=== PATIENT | female | born 1995 | race African-American/Black ===

== ENCOUNTER 2017-06-06 11:24 | Emergency (ER) | payer MEDICAID ==
[~2017-06-06] VITALS: Ht 172.7 cm; Wt 83.0 kg
[2017-06-06 12:00] VITALS: BP 125/78
[2017-06-06] MEDS ORDERED: IBUPROFEN600 MG ORAL (12:01)
[2017-06-06] MEDS ORDERED: PREDNISONE20 MG ORAL (12:01)
[2017-06-06] MEDS ORDERED: CLINDAMYCIN HC300 MG ORAL (12:01)
--- NOTE | 2017-06-06 14:13 | Emergency Room Report ---
History of Present Illness General Chief Complaint: Sore Throat Source: Patient Present Illness HPI Patient present with complaints of sore throat Ongoing for the past one day Questionable low-grade fever Denies any difficulty swallowing or breathing Denies any headache or visual changes and eyes any rash pain is 5 out of 10 Denies any vomiting or diarrhea denies any change in her voice Allergies: Coded Allergies: PENICILLINS (Verified Allergy, Severe, Hives, 06/06/17) Patient History Past Medical History: see triage record Pertinent Family History: none Last Menstrual Period: last month Now: No Reviewed Nursing Documentation: PMH: Agreed, PSxH: Agreed Nursing Documentation-PMH Past Medical History: No History, Except For Hx Asthma: Yes Review of Systems All Other Systems: negative except mentioned in HPI Physical Exam Vital Signs Date Time Temp Pulse Resp B/P (MAP) Pulse Ox O2 Delivery O2 Flow Rate FiO2 06/06/17 11:36 98.8 94 18 125/78 98 Room Air 98.8 Sp02 EP Interpretation: reviewed, normal General Appearance: well appearing, no apparent distress Head: normocephalic, atraumatic Eyes: bilateral eye PERRL, bilateral eye EOMI ENT: no angioedema, uvula midline, pharyngeal erythema Neck: full range of motion, supple Respiratory: lungs clear Cardiovascular #1: regular rate, rhythm Musculoskeletal: normal inspection Neurologic: alert, oriented x3, responsive Skin: normal color, no rash, warm/dry Lymphatic: no adenopathy Medical Decision Making Diagnostic Impression: Primary Impression: pharyngitis ER Course Patient has findings in line with pharyngitis No signs of any peritonsillar abscess Patient was provided with medication here and placed on oral antibiotics she is allergic to penicillin therefore placed on clindamycin Last Vital Signs Date Time Temp Pulse Resp B/P (MAP) Pulse Ox O2 Delivery O2 Flow Rate FiO2 06/06/17 12:10 98.8 06/06/17 11:36 94 18 125/78 98 Room Air Status: improved Disposition: HOME, SELF-CARE Condition: Improved Scripts Clindamycin Hcl (CLINDAMYCIN HCL) 300 Mg Capsule 300 MG ORAL THREE TIMES A DAY, #21 CAP Prov: Miles Sanz DO 06/06/17 Prednisone* (PREDNISONE*) 20 Mg Tablet 20 MG ORAL BID, #8 TAB Prov: Miles Sanz DO 06/06/17 Ibuprofen* (MOTRIN*) 600 Mg Tablet 600 MG ORAL Q8H Y for For Pain, #20 TAB 0 Refills Prov: Miles Sanz DO 06/06/17 Patient Instructions: Pharyngitis, [id number] Additional Instructions: Patient is provided with the discharge instructions notified to follow up with primary doctor in the next 2-3 days otherwise return to the er with any worsening symptoms. Please note that this report is being documented using Nuji technology. This can lead to erroneous entry secondary to incorrect interpretation by the dictating instrument. Miles Sanz DO Jun 06, 2017 14:13
== END 2017-06-06 12:45 | disposition home or self-care (01) ==
LOC: EMR 12:40
DX: J02.9 Acute pharyngitis, unspecified (principal); J45.909 Unspecified asthma, uncomplicated; Z88.0 Allergy status to penicillin
CPT/HCPCS: 99284; J7512

== ENCOUNTER 2017-06-19 05:41 | Emergency (ER) | payer MEDICAID ==
[~2017-06-19] VITALS: Ht 172.7 cm; Wt 84.8 kg
[~2017-06-19 05:41] MED LIST: CLINDAMYCIN HC300 MG ORAL; IBUPROFEN600 MG ORAL; PREDNISONE20 MG ORAL
[2017-06-19 06:05] VITALS: BP 111/75
[2017-06-19] MEDS ORDERED: DEBROX15 M1 RIGHT EAR (06:43)
--- NOTE | 2017-06-19 06:44 | Emergency Room Report ---
History of Present Illness General Chief Complaint: Sore Throat Source: Patient Present Illness HPI Is a 21-year-old female with no past medical history except for asthma. She presents with sore throat and ear pain. Onset for last 2 days. She saw her doctor last week and given prescription for antibiotics and steroid. She has not taken them. Worse with talking. Pain is 8 out of 10. Also decreased hearing. No nausea no vomiting. Does have congestion. Also with loss of voice. Allergies: Coded Allergies: PENICILLINS (Verified Allergy, Severe, Hives, 06/06/17) Uncoded Allergies: PENICILLINE (Allergy, Unknown, 06/19/17) Patient History Past Medical History: see triage record, old chart reviewed, asthma Past Surgical History: none Pertinent Family History: none Social History: Denies: smoking Last Menstrual Period: one week ago Now: No Immunizations: other Reviewed Nursing Documentation: PMH: Agreed; PSxH: Agreed Nursing Documentation-PMH Hx Asthma: Yes Review of Systems Eye: Denies: eye pain, blurred vision ENT: Reports: ear pain, nose congestion, throat pain; Denies: throat swelling Respiratory: Denies: cough, shortness of breath Cardiovascular: Denies: chest pain, palpitations Gastrointestinal: Denies: abdominal pain, diarrhea, nausea, vomiting Musculoskeletal: Denies: back pain, joint pain Skin: Denies: rash Neurological: Denies: headache, numbness Endocrine: Denies: increased thirst, increased urine Hematologic/Lymphatic: Denies: easy bruising All Other Systems: negative except mentioned in HPI Physical Exam Vital Signs Date Time Temp Pulse Resp B/P (MAP) Pulse Ox O2 Delivery O2 Flow Rate FiO2 06/19/17 05:50 100 14 111/75 98 Room Air 06/19/17 06:05 98.0 98.0 vitals normal Sp02 EP Interpretation: reviewed, normal General Appearance: well appearing, no apparent distress, alert Head: normocephalic, atraumatic Eyes: bilateral eye PERRL, bilateral eye EOMI ENT: hearing grossly normal, pharyngeal erythema, other - bilateral canal obstructed with cerumen Neck: full range of motion, supple, no meningismus Respiratory: chest non-tender, lungs clear, normal breath sounds Cardiovascular #1: regular rate, rhythm, no murmur Gastrointestinal: normal bowel sounds, non tender, no mass, no organomegaly, no bruit, non-distended Musculoskeletal: back normal, gait/station normal, normal range of motion Psychiatric: mood/affect normal Skin: warm/dry Procedures Additional Procedure Procedure Narrative Procedure: Cerumen disimpaction Indication: Cerumen impaction Description: I irrigated the left ear and using a current able to remove the impacted cerumen. I had difficulty with the right ear. Is was very thick and hard. Appear that was able to get half of it out. Patient became very dizzy and did not want to proceed anymore. There was no complication or bleeding. Medical Decision Making Diagnostic Impression: Primary Impression: Sore throat Additional Impression: Impacted cerumen of both ears ER Course Patient with a pharyngitis/laryngitis. This is a viral infection. No evidence of bacterial infection. She finished a course of antibiotics and not getting better. No evidence of peritonsillar abscess or neoplastic process. No evidence of retropharyngeal abscess or Lucian angina. Last Vital Signs Date Time Temp Pulse Resp B/P (MAP) Pulse Ox O2 Delivery O2 Flow Rate FiO2 06/19/17 06:05 98.0 100 14 111/75 98 Room Air 98.0 Status: improved Disposition: HOME, SELF-CARE Condition: Stable Scripts Carbamide Peroxide (DEBROX) 15 Ml Drops 5 DROP RIGHT EAR TWICE A DAY for 4 Days, #15 ML 0 Refills Prov: PITA ARRINGTON M.D. 06/19/17 Patient Instructions: Laryngitis Additional Instructions: Follow-up with your doctor in 2-3 days. Return if symptom worsen. Take your steroids. PITA ARRINGTON M.D. Jun 19, 2017 06:44
[2017-06-19 08:04] VITALS: BP_SYST 111; BP_SYST 118; BP_DIAS 68; BP_DIAS 75
== END 2017-06-19 08:04 | disposition home or self-care (01) ==
LOC: EMR 06:30
DX: J02.9 Acute pharyngitis, unspecified (principal); H61.23 Impacted cerumen, bilateral; Z88.0 Allergy status to penicillin
CPT/HCPCS: 69210; 99283

== ENCOUNTER 2017-07-05 06:01 | Emergency (ER) | payer MEDICAID ==
[~2017-07-05] VITALS: Ht 172.7 cm; Wt 84.8 kg
[~2017-07-05 06:01] MED LIST changes: +DEBROX15 M1 RIGHT EAR
[2017-07-05] MEDS ORDERED: ALBUTEROL SULF8.5 GM INH (06:13)
[2017-07-05 06:24] VITALS: BP 119/82
[2017-07-05] MEDS ORDERED: FLONASE ALLERG9.9 ML NS (06:39)
[2017-07-05] MEDS ORDERED: SUDAFED 12 HOU120 M1 PO (06:39)
--- NOTE | 2017-07-05 06:44 | Emergency Room Report ---
History of Present Illness General Chief Complaint: Sore Throat Source: Patient Present Illness HPI 20-year-old female presents with sore throat since waking up this morning No associated fever, chills, cough Is associated with sinus congestion and frontal sinus headache This is third visit in 1 month for similar complaints - patient already completed a course of clindamycin, and had eardrops for impacted cerumen Denies difficulty swallowing secretions, eating Was given Rx for Levaquin by another physician in hospital but hasnt filled it Allergies: Coded Allergies: PENICILLINS (Verified Allergy, Severe, Hives, 06/06/17) Patient History Past Medical History: asthma Past Surgical History: none Pertinent Family History: none Social History: Denies: smoking, alcohol use, drug use Last Menstrual Period: 06/15/17 Now: No Immunizations: UTD Reviewed Nursing Documentation: PMH: Agreed; PSxH: Agreed Nursing Documentation-PMH Past Medical History: No History, Except For Hx Asthma: Yes Review of Systems All Other Systems: negative except mentioned in HPI Physical Exam Vital Signs Date Time Temp Pulse Resp B/P (MAP) Pulse Ox O2 Delivery O2 Flow Rate FiO2 07/05/17 06:07 98.4 87 16 119/82 97 Room Air 98.4 Sp02 EP Interpretation: reviewed, normal General Appearance: normal inspection, well appearing, no apparent distress, alert, GCS 15, non-toxic Head: normocephalic, atraumatic Eyes: bilateral eye PERRL, bilateral eye EOMI ENT: normal ENT inspection, hearing grossly normal, no angioedema, normal voice , TMs + canals normal, uvula midline, moist mucus membranes, nasal congestion, pharyngeal erythema Neck: normal inspection, full range of motion, supple, thyroid normal, no meningismus, no bony tend Respiratory: normal inspection, lungs clear, normal breath sounds, no rhonchi, no respiratory distress, no retraction, no accessory muscle use, no wheezing, speaking full sentences Cardiovascular #1: regular rate, rhythm, no edema, no JVD, normal capillary refill Gastrointestinal: normal inspection, normal bowel sounds, non tender, soft, no mass, no peritonitis, non-distended, no guarding, no hernia, no pulsatile mass Genitourinary: no CVA tenderness Musculoskeletal: normal inspection, back normal, normal range of motion, no calf tenderness, pelvis stable, Estevan's Sign negative Neurologic: normal inspection, alert, oriented x3, responsive, meterman III-XII nml as tested, motor strength/tone normal, cerebellar normal, normal gait, speech normal Psychiatric: normal inspection, judgement/insight normal, mood/affect normal, no suicidal/homicidal ideation, no delusions Skin: normal inspection, normal color, no rash Lymphatic: normal inspection, no adenopathy Medical Decision Making Diagnostic Impression: Primary Impression: Sore throat Additional Impressions: Sinus congestion Sinusitis Qualified Codes: J01.10 - Acute frontal sinusitis, unspecified ER Course VSS, afebrile Sinus congestion, headache and erythematous oropharynx, likely post-nasal drip No sign of bacterial infection Advised complete Levaquin Rx given by other physician Sudafed, flonase for symptomatic relief PMD followup Last Vital Signs Date Time Temp Pulse Resp B/P (MAP) Pulse Ox O2 Delivery O2 Flow Rate FiO2 07/05/17 06:24 98.4 87 16 119/82 97 Room Air 98.4 Status: improved Disposition: HOME, SELF-CARE Condition: Improved Scripts Fluticasone Propionate (Flonase Allergy Relief) 9.9 Ml [place].susp 9.9 ML NS BID for nasal congestion for 7 Days, #1 UNIT Prov: ALLYN LANTIGUA M.D. 07/05/17 Pseudoephedrine Hcl (SUDAFED 12 HOUR) 120 Mg Tablet.er 120 MG PO DAILY for 5 Days, #10 TAB Prov: ALLYN LANTIGUA M.D. 07/05/17 Patient Instructions: Sinusitis, Adult, [id number] Additional Instructions: - Fill prescription for Levaquin from doctor - Use sudafed and flonasa nasal spray to treat sinus congestion ALLYN LANTIGUA M.D. Jul 05, 2017 06:44
[2017-07-05 06:45] VITALS: BP 119/82
== END 2017-07-05 06:45 | disposition home or self-care (01) ==
LOC: EMR 06:45
DX: J01.10 Acute frontal sinusitis, unspecified (principal); Z88.0 Allergy status to penicillin
CPT/HCPCS: 99284

== ENCOUNTER 2017-07-13 05:37 | Emergency (ER) | payer MEDICAID ==
[~2017-07-13] VITALS: Ht 172.7 cm; Wt 84.8 kg
[~2017-07-13 05:37] MED LIST changes: +ALBUTEROL SULF8.5 GM INH; +FLONASE ALLERG9.9 ML NS; +SUDAFED 12 HOU120 M1 PO
[2017-07-13 06:02] VITALS: BP 110/73
[2017-07-13] MEDS ORDERED: Fluconazole 100mg tab ORAL ONE (06:15)
--- NOTE | 2017-07-13 06:15 | Emergency Room Report ---
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 She presents with chief complaint of vaginal itching. She was treated for tonsillitis last week with antibiotics. She said every time she get antibiotics to get a yeast infection. Denies vaginal bleeding. Denies any discharge. Similar symptom in the past. Allergies: Coded Allergies: PENICILLINS (Verified Allergy, Severe, Hives, 06/06/17) Patient History Past Medical History: see triage record, old chart reviewed Past Surgical History: none Pertinent Family History: none Social History: Denies: smoking Last Menstrual Period: 06/17/17 Now: No Immunizations: other Reviewed Nursing Documentation: PMH: Agreed; PSxH: Agreed Nursing Documentation-PMH Past Medical History: No History, Except For Hx Asthma: Yes Hx Gastrointestinal Problems: Yes - Cholecystectomy Hx Neurological Problems: No - Right Ovarian cyst removed on 04/09/17 Review of Systems Eye: Denies: eye pain, blurred vision ENT: Denies: ear pain, nose congestion, throat swelling Respiratory: Denies: cough, shortness of breath Cardiovascular: Denies: chest pain, palpitations Gastrointestinal: Denies: abdominal pain, diarrhea, nausea, vomiting Musculoskeletal: Denies: back pain, joint pain Skin: Denies: rash Neurological: Denies: headache, numbness Endocrine: Denies: increased thirst, increased urine Hematologic/Lymphatic: Denies: easy bruising All Other Systems: negative except mentioned in HPI Physical Exam Vital Signs Date Time Temp Pulse Resp B/P (MAP) Pulse Ox O2 Delivery O2 Flow Rate FiO2 07/13/17 05:50 98.1 99 16 110/73 98 Room Air 98.1 vitals normal Sp02 EP Interpretation: reviewed, normal General Appearance: well appearing, no apparent distress, alert Head: normocephalic, atraumatic Eyes: bilateral eye PERRL, bilateral eye EOMI ENT: hearing grossly normal, normal pharynx Neck: full range of motion, supple, no meningismus Respiratory: chest non-tender, lungs clear, normal breath sounds Cardiovascular #1: regular rate, rhythm, no murmur Gastrointestinal: normal bowel sounds, non tender, no mass, no organomegaly, no bruit, non-distended Musculoskeletal: back normal, gait/station normal, normal range of motion Psychiatric: mood/affect normal Skin: warm/dry Medical Decision Making Diagnostic Impression: Primary Impression: Candidal vaginitis ER Course Patient presents with vaginitis most likely Gris. We'll give her a dose of Diflucan here. No other complaint. We'll discharge home. Last Vital Signs Date Time Temp Pulse Resp B/P (MAP) Pulse Ox O2 Delivery O2 Flow Rate FiO2 07/13/17 06:02 98.1 99 16 110/73 98 Room Air 98.1 Status: unchanged Disposition: HOME, SELF-CARE Condition: Stable Referrals: NOT CHOSEN IPA/MD,REFERRING (PCP) Additional Instructions: Follow-up your doctor in 7 days. Return if worse. PITA ARRINGTON M.D. Jul 13, 2017 06:15
[2017-07-13 06:23] VITALS: BP 0/0
== END 2017-07-13 06:23 | disposition home or self-care (01) ==
LOC: EMR 06:10
DX: B37.3 Candidiasis of vulva and vagina (principal); Z88.0 Allergy status to penicillin; Z90.49 Acquired absence of other specified parts of digestive tract
CPT/HCPCS: 99282

== ENCOUNTER 2017-08-11 08:54 | Emergency (ER) | payer MEDICAID ==
[~2017-08-11] VITALS: Ht 172.7 cm; Wt 81.6 kg
--- NOTE | 2017-08-11 09:15 | Emergency Room Report ---
History of Present Illness General Chief Complaint: General Complaint Source: Patient Present Illness HPI Patient presents with chest pressure. She states she had an asthma attack early this morning. She used her inhaler and has no wheezing at this time. She denies any fevers, chills, nausea, vomiting, diarrhea. Her last period was normal she doesn't believe she is . She feels pressure in her chest at this time and saw [facility] who found her heart rate was up. The last time she had pressure like this was when she had an anxiety attack. This was treated with benadryl. She does not smoke and is not taking control pills. She's not had a long immobilization. She denies calf pain or edema. No fevers, trauma, NVD, dysuria. 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 [employer] Reviewed Nursing Documentation: PMH: Agreed; PSxH: Agreed Nursing Documentation-PMH Past Medical History: No History, Except For Hx Asthma: Yes Hx Gastrointestinal Problems: Yes - Cholecystectomy Hx Neurological Problems: No - Right Ovarian cyst removed on 04/09/17 Review of Systems All Other Systems: negative except mentioned in HPI Physical Exam Vital Signs Date Time Temp Pulse Resp B/P (MAP) Pulse Ox O2 Delivery O2 Flow Rate FiO2 08/11/17 09:00 97.8 80 16 146/86 97 Room Air 97.9 Sp02 EP Interpretation: reviewed, normal General Appearance: well appearing, no apparent distress, GCS 15 Head: normocephalic, atraumatic Eyes: bilateral eye normal inspection, bilateral eye PERRL ENT: hearing grossly normal, normal voice, moist mucus membranes Neck: full range of motion, supple Respiratory: lungs clear, normal breath sounds, no respiratory distress, speaking full sentences, other - some R CWT Cardiovascular #1: normal peripheral pulses, regular rate, rhythm Cardiovascular #2: 2+ radial (L) Gastrointestinal: normal inspection Genitourinary: no CVA tenderness Musculoskeletal: no calf tenderness Neurologic: alert, oriented x3, normal gait, grossly normal Psychiatric: mood/affect normal Skin: no rash Medical Decision Making Diagnostic Impression: Primary Impression: Chest pain Qualified Codes: R07.9 - Chest pain, unspecified Additional Impression: Asthma Qualified Codes: J45.909 - Unspecified asthma, uncomplicated ER Course Patient presents with chest pressure after an asthma attack. Differential includes pulmonary embolus, asthma, costochondritis, cardiac cause, spontaneous pneumothorax amongst others. She claims she's not anxious at this time. Risk for pulmonary embolus is extremely low based on physical exam and history. Physical exam more c/w CWT. Patient be treated with Motrin. An EKG will be checked. Asthma now stable and she is not wheezing. EKG without injury. Improved with treatment. Doubt pneumo as improved with motrin. Patient stable for outpatient observation and treatment. EKG Diagnostic Results Rate: normal Rhythm: NSR ST Segments: no acute changes Rhythm Strip Diag. Results EP Interpretation: yes Rhythm: NSR, no PVC's, no ectopy Last Vital Signs Date Time Temp Pulse Resp B/P (MAP) Pulse Ox O2 Delivery O2 Flow Rate FiO2 08/11/17 10:17 98.7 66 15 138/71 99 Room Air 208.0 Status: improved Disposition: HOME, SELF-CARE Condition: Improved Scripts Ibuprofen* (MOTRIN*) 600 Mg Tablet 600 MG ORAL Q6H PRN for For Pain, #16 TAB Prov: Marvin Cristina M.D. 08/11/17 Marvin Cristina M.D. August 11, 2017 09:15
[2017-08-11 09:31] VITALS: BP 140/82
[2017-08-11] MEDS ORDERED: IBUPROFEN600 MG ORAL (10:06)
[2017-08-11 10:17] VITALS: BP 138/71
--- NOTE | 2017-08-13 22:32 | Cardiology Report ---
APPROVED REPORT EKG Measurement Heart [id number] Normal sinus rhythm with sinus arrhythmia Normal ECG
== END 2017-08-11 10:19 | disposition home or self-care (01) ==
LOC: EMR 09:28
DX: R07.89 Other chest pain (principal); J45.909 Unspecified asthma, uncomplicated; Z90.49 Acquired absence of other specified parts of digestive tract; Z88.0 Allergy status to penicillin
CPT/HCPCS: 93005; 99283

== ENCOUNTER 2017-09-11 07:11 | Emergency (ER) | payer MEDICAID ==
[~2017-09-11] VITALS: Ht 172.7 cm; Wt 83.5 kg
[2017-09-11 07:22] VITALS: BP 121/85
[2017-09-11] MEDS ORDERED: LORATADINE10 M2 PO (07:23)
--- NOTE | 2017-09-11 07:27 | Emergency Room Report ---
History of Present Illness General Chief Complaint: Asthma Source: Patient Present Illness HPI Patient is a 22-year-old female presented after increased cough and congestion. Patient prior history of asthma. She noted have increased use of her inhaler. Patient denies any fever. She states that she had previous and been taking Claritin. She reports recently being on steroids. 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 The patient was having increased nasal congestion as well as cough Allergies: Coded Allergies: PENICILLINS (Verified Allergy, Severe, Hives, 06/06/17) Patient History Past Medical History: see triage record Last Menstrual Period: 08/15/17 Now: No Reviewed Nursing Documentation: PMH: Agreed; PSxH: Agreed Nursing Documentation-PMH Hx Asthma: Yes Hx Gastrointestinal Problems: Yes - Cholecystectomy Hx Neurological Problems: No - Right Ovarian cyst removed on 04/09/17 Review of Systems All Other Systems: negative except mentioned in HPI Physical Exam Vital Signs Date Time Temp Pulse Resp B/P (MAP) Pulse Ox O2 Delivery O2 Flow Rate FiO2 09/11/17 07:14 98.8 82 19 121/85 96 Room Air 98.8 Sp02 EP Interpretation: reviewed, normal General Appearance: normal inspection, well appearing, no apparent distress, alert, GCS 15 Head: atraumatic ENT: normal ENT inspection, hearing grossly normal, normal voice Neck: normal inspection, full range of motion, supple, no bony tend Respiratory: normal inspection, no respiratory distress, no retraction, wheezing Cardiovascular #1: regular rate, rhythm, no edema Gastrointestinal: normal inspection, normal bowel sounds, non tender, soft, no guarding, no hernia Genitourinary: no CVA tenderness Musculoskeletal: normal inspection, back normal, normal range of motion Neurologic: normal inspection, alert, oriented x3, responsive, paraffin plant operator III-XII nml as tested, speech normal Psychiatric: normal inspection, judgement/insight normal, mood/affect normal Skin: normal inspection, normal color, no rash Medical Decision Making Diagnostic Impression: Primary Impression: Asthma attack Additional Impression: Urinary tract infection ER Course Patient presented for increased cough. Differential included but was not limited to asthma exacerbation, anemia, pneumonia, pneumothorax, myocardial infarction, pericardial effusion, congestive heart failure, acidosis. Patient was given breathing treatment with some improvement in her symptoms.The patient is advised to follow up with primary care doctor in 1-2 days. Patient is advised to return if any worsening condition or if any changes in status that are concerning. This report is dictated with Zoomdata title processor software which may occasionally lead to discrepancies related to use of this software. Labs Test 09/11/17 07:25 Urine Color Yellow Urine Appearance Slightly cloudy Urine pH 6 (4.5-8.0) Urine Specific [place] 1.025 (1.005-1.035) Urine Protein 1+ (NEGATIVE) Urine Glucose (UA) Negative (NEGATIVE) Urine Ketones 1+ (NEGATIVE) Urine Occult Blood Negative (NEGATIVE) Urine Nitrite Negative (NEGATIVE) Urine Bilirubin Negative (NEGATIVE) Urine Urobilinogen Normal MG/DL (0.0-1.0) Urine Leukocyte Esterase 2+ (NEGATIVE) Urine RBC 5-10 /HPF (0 - 2) Urine WBC 10-15 /HPF (0 - 2) Urine Squamous Epithelial Cells Moderate /LPF (NONE/OCC) Urine Bacteria Many /HPF (NONE) Urine HCG, Qualitative Negative (NEGATIVE) Last Vital Signs Date Time Temp Pulse Resp B/P (MAP) Pulse Ox O2 Delivery O2 Flow Rate FiO2 09/11/17 07:22 82 19 Room Air 09/11/17 07:22 98.8 121/85 96 98.8 Status: improved Disposition: HOME, SELF-CARE Condition: Stable Scripts Trimethoprim/Sulfamethoxazole 160/800* (BACTRIM DS TABLET*) 1 Each Tablet 1 TAB ORAL Q12H, #14 TAB 0 Refills Prov: Gonzales Serrano MD 09/11/17 Prednisone* (PREDNISONE*) 20 Mg Tablet 40 MG ORAL DAILY, #10 TAB Prov: Gonzales Serrano MD 09/11/17 Loratadine/Pseudoephedrine (CLARITIN-D 12 HOUR TABLET) 1 Each Tab.er.12h 1 TAB ORAL EVERY 12 HOURS, #30 TAB Prov: Gonzales Serrano MD 09/11/17 Gonzales Serrano MD Sep 11, 2017 07:26
[2017-09-11] MEDS ORDERED: Albuterol/Ipratropium 3ml neb HHN ONE (07:30)
[2017-09-11 07:42] LABS: APPEARANCE,URINE SLIGHTLY CLOUDY; BILIRUBIN, URINE NEGATIVE (NEGATIVE); GLUCOSE, URINE (UA) NEGATIVE (NEGATIVE); KETONES,URINE 1+ (NEGATIVE); LEUKOCYTE ESTERASE ,URINE 2+ (NEGATIVE); NITRITE,URINE NEGATIVE (NEGATIVE); PH,URINE 6 (4.5-8.0); PROTEIN,URINE 1+ (NEGATIVE); UROBILINOGEN,URINE NORMAL MG/DL (0.0-1.0)
[2017-09-11 07:49] LABS: COLOR,URINE YELLOW
[2017-09-11] MEDS ORDERED: CLARITIN-D 121 EAC1 ORAL (08:40)
[2017-09-11] MEDS ORDERED: PREDNISONE20 MG ORAL (08:40)
[2017-09-11] MEDS ORDERED: BACTRIM DS TAB1 EAC1 ORAL (08:41)
[2017-09-11 08:48] VITALS: BP 121/85
== END 2017-09-11 08:46 | disposition home or self-care (01) ==
LOC: EMR 07:33
DX: J45.909 Unspecified asthma, uncomplicated (principal); N39.0 Urinary tract infection, site not specified; Z88.0 Allergy status to penicillin; Z90.49 Acquired absence of other specified parts of digestive tract
CPT/HCPCS: 81003; 81025; 87086; 94640; 94664; 99284; J7620

== ENCOUNTER 2017-10-21 11:10 | Emergency (ER) | payer MEDICAID ==
[~2017-10-21] VITALS: Ht 172.7 cm; Wt 83.9 kg
[~2017-10-21 11:10] MED LIST changes: +BACTRIM DS TAB1 EAC1 ORAL; +CLARITIN-D 121 EAC1 ORAL; +LORATADINE10 M2 PO
[2017-10-21 11:21] VITALS: BP 114/77
--- NOTE | 2017-10-21 12:12 | Emergency Room Report ---
History of Present Illness General Chief Complaint: Diarrhea Source: Patient Present Illness HPI 22yo F with history of asthma p/w multiple bouts of nonbloody diarrhea for the last 2 days, tried Pepto-Bismol and Tums without relief, denies fever, chills, nausea, vomiting, shortness of breath. She reports no recent antibiotic use, intravenous her symptoms eating fried rice and chicken from urination only 2 days ago. She reports no abdominal pain just crampiness throughout her belly that feels better whenever she has a BM. Allergies: Coded Allergies: PENICILLINS (Verified Allergy, Severe, Hives, 06/06/17) Patient History Past Medical History: see triage record Last Menstrual Period: 09/17 Now: No Reviewed Nursing Documentation: PMH: Agreed; PSxH: Agreed Nursing Documentation-PMH Hx Asthma: Yes Hx Gastrointestinal Problems: Yes - Cholecystectomy Hx Neurological Problems: No - Right Ovarian cyst removed on 04/09/17 Review of Systems All Other Systems: negative except mentioned in HPI Physical Exam Vital Signs Date Time Temp Pulse Resp B/P (MAP) Pulse Ox O2 Delivery O2 Flow Rate FiO2 10/21/17 11:12 98.4 73 18 114/77 97 Room Air 98.4 Sp02 EP Interpretation: reviewed, normal General Appearance: no apparent distress, alert, non-toxic Head: normocephalic Eyes: bilateral eye normal inspection, bilateral eye PERRL, bilateral eye EOMI ENT: normal ENT inspection, hearing grossly normal, normal pharynx, no angioedema, normal voice, moist mucus membranes Neck: normal inspection, full range of motion, supple, supple/symm/no masses Respiratory: chest non-tender, lungs clear, normal breath sounds, chest symmetrical, palpation of chest normal Cardiovascular #1: normal peripheral pulses, regular rate, rhythm Cardiovascular #2: 2+ radial (R), 2+ radial (L) Gastrointestinal: normal inspection, non tender, soft, no mass, no guarding, no rebound Rectal: deferred Genitourinary: normal inspection, no CVA tenderness Musculoskeletal: back normal, gait/station normal, normal range of motion, non- tender, no calf tenderness Neurologic: alert, responsive, regulatory analyst III-XII nml as tested, motor strength/tone normal, sensory intact, speech normal Psychiatric: judgement/insight normal, memory normal, mood/affect normal, no suicidal/homicidal ideation Skin: normal color, no rash, warm/dry, normal turgor Lymphatic: no adenopathy Medical Decision Making Diagnostic Impression: Primary Impression: Diarrhea Additional Impression: 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 Last Vital Signs Date Time Temp Pulse Resp B/P (MAP) Pulse Ox O2 Delivery O2 Flow Rate FiO2 10/21/17 11:21 98.4 73 18 114/77 97 Room Air 98.4 Disposition: HOME, SELF-CARE Condition: Stable Referrals: NOT CHOSEN [facility]/,REFERRING (PCP) MEENU CARIAS M.D Oct 21, 2017 12:11
[2017-10-21 12:16] LABS: APPEARANCE,URINE CLEAR; BILIRUBIN, URINE NEGATIVE (NEGATIVE); GLUCOSE, URINE (UA) NEGATIVE (NEGATIVE); KETONES,URINE NEGATIVE (NEGATIVE); LEUKOCYTE ESTERASE ,URINE 2+ (NEGATIVE); NITRITE,URINE NEGATIVE (NEGATIVE); PH,URINE 6 (4.5-8.0); PROTEIN,URINE 1+ (NEGATIVE); UROBILINOGEN,URINE NORMAL MG/DL (0.0-1.0)
[2017-10-21 12:23] LABS: BASOPHILS % (AUTO) 1.1 % (0.0-2.0); EOSINOPHILS % (AUTO) 2.2 % (0.0-3.0); HEMOGLOBIN 14.5 G/DL (12.0-16.0); LYMPHOCYTES % (AUTO) 28.8 % (20.0-45.0); MEAN CORPUSCULAR VOLUME 92 FL (80-99); MONOCYTES % (AUTO) 4.3 % (1.0-10.0); NEUTROPHILS % (AUTO) 63.6 % (45.0-75.0); PLATELET COUNT 241 K/UL (150-450); RED BLOOD COUNT 4.87 M/UL (4.20-5.40); RED CELL DISTRIBUTION WIDTH 11.8 % (11.6-14.8); WHITE BLOOD COUNT 11.7 K/UL (4.8-10.8)
[2017-10-21 12:28] LABS: COLOR,URINE YELLOW
[2017-10-21 12:37] LABS: ANION GAP 10 mmol/L (5-15); BLOOD UREA NITROGEN 7 mg/dL (7-18); CALCIUM 8.7 MG/DL (8.5-10.1); CARBON DIOXIDE 24 MMOL/L (21-32); CHLORIDE 106 MMOL/L (98-107); CREATININE 0.7 MG/DL (0.55-1.30); POTASSIUM 3.7 MMOL/L (3.5-5.1); SODIUM 140 MMOL/L (136-145)
[2017-10-21 12:41] LABS: ALANINE AMINOTRANSFERASE 16 U/L (12-78); ALBUMIN 3.7 G/DL (3.4-5.0); ALBUMIN/GLOBULIN RATIO 0.9 (1.0-2.7); ALKALINE PHOSPHATASE 95 U/L (46-116); ASPARTATE AMINO TRANSFERASE 23 U/L (15-37); BILIRUBIN,TOTAL 0.6 MG/DL (0.2-1.0)
[2017-10-21] MEDS ORDERED: CIPROFLOXACIN500 M2 ORAL (12:58)
[2017-10-21 13:00] VITALS: BP 116/72
[2017-10-21 13:17] VITALS: BP 114/77
== END 2017-10-21 13:17 | disposition home or self-care (01) ==
LOC: EMR 11:41
DX: A05.4 Foodborne Bacillus cereus intoxication (principal); J45.909 Unspecified asthma, uncomplicated; Z88.0 Allergy status to penicillin
CPT/HCPCS: 36415; 80053; 81003; 83690; 84702; 85025; 96360; 99284

== ENCOUNTER 2017-12-13 14:24 | Emergency (ER) | payer MEDICAID ==
[~2017-12-13] VITALS: Ht 172.7 cm; Wt 84.4 kg
[~2017-12-13 14:24] MED LIST changes: +CIPROFLOXACIN500 M2 ORAL
[2017-12-13] MEDS ORDERED: Albuterol ud Inhalation HHN ONE (15:00)
[2017-12-13] MEDS ORDERED: Albuterol ud Inhalation ONE (15:01)
[2017-12-13 15:04] VITALS: BP 120/78
--- NOTE | 2017-12-13 15:21 | Emergency Room Report ---
History of Present Illness General Chief Complaint: Asthma Source: Patient Present Illness HPI Pt. presents to the ED c/o cough and wheezing x 2 days, Pt. has a hx of asthma, and inhaler treatments at home are not helping. Pt. Denies fevers, chills, productive sputum, recent upper respiratory illness. Patient sates that she typically gets exacerbations around this time a year. Denies rashes or symptoms of allergic reaction. Denies pain at this time. Allergies: Coded Allergies: PENICILLINS (Verified Allergy, Severe, Hives, 12/13/17) Patient History Past Medical History: see triage record, asthma Past Surgical History: none Pertinent Family History: none Last Menstrual Period: Oct 2017 Now: No Reviewed Nursing Documentation: PMH: Agreed; PSxH: Agreed Nursing Documentation-PMH Past Medical History: No History, Except For Hx Asthma: Yes Hx Gastrointestinal Problems: Yes - Cholecystectomy Hx Neurological Problems: No - Right Ovarian cyst removed on 04/09/17 Review of Systems All Other Systems: negative except mentioned in HPI Physical Exam Vital Signs Date Time Temp Pulse Resp B/P (MAP) Pulse Ox O2 Delivery O2 Flow Rate FiO2 12/13/17 14:30 98.2 76 15 120/78 96 Room Air 98.2 12/13/17 14:57 21 Sp02 EP Interpretation: reviewed, normal General Appearance: no apparent distress, alert, GCS 15, non-toxic Head: normocephalic, atraumatic Eyes: bilateral eye normal inspection, bilateral eye PERRL ENT: hearing grossly normal, normal voice Neck: full range of motion Respiratory: chest non-tender, no rhonchi, no respiratory distress, speaking full sentences, wheezing - expiratory wheezes bilaterally Cardiovascular #1: regular rate, rhythm Musculoskeletal: back normal, gait/station normal, normal range of motion, non- tender Neurologic: alert, oriented x3, responsive, motor strength/tone normal, sensory intact, speech normal, grossly normal Psychiatric: judgement/insight normal Skin: normal color, no rash, warm/dry, well hydrated Medical Decision Making PA Attestation Dr. Cristina is my supervising Physician whom patient management has been discussed with. Diagnostic Impression: Primary Impression: Asthma exacerbation Qualified Codes: J45.21 - Mild intermittent asthma with (acute) exacerbation ER Course Pt. presents to the ED c/o cough and wheezing x 2 days, Pt. has a hx of asthma, and inhaler treatments at home are not helping. Pt. Denies fevers, chills, productive sputum, recent upper respiratory illness. Patient sates that she typically gets exacerbations around this time a year. Denies rashes or symptoms of allergic reaction. Ddx considered but are not limited to asthma exacerbation, CHF, URI, pneumonia, PE, strep pharyngitis, meningitis. Vital signs: Pt. is afebrile, VS are WNL H&PE are most consistent with URI, asthma exacerbation ORDERS: none required at this time, the diagnosis is clinical ED INTERVENTIONS: Albuterol nebulized treatment. - re-examination post nebulized treatment lungs are CTA bilaterally. DISCHARGE: At this time pt. is stable for d/c to home. Will provide printed patient care instructions, and any necessary prescriptions. Care plan and follow up instructions have been discussed with the patient prior to discharge. Last Vital Signs Date Time Temp Pulse Resp B/P (MAP) Pulse Ox O2 Delivery O2 Flow Rate FiO2 12/13/17 15:15 21 12/13/17 15:14 66 20 100 Room Air 12/13/17 15:04 98.2 120/78 98.2 Disposition: HOME, SELF-CARE Condition: Stable Scripts Nebulizer Accessories (REUSABLE NEBULIZER KIT) 1 Each Kit EACH for ashtma, #1 Prov: Gail Esparza 12/13/17 Albuterol Sulfate* (ALBUTEROL SULFATE HHN*) 2.5 Mg/3 Ml Vial.neb 3 ML INH Q6H PRN for Shortness of Breath, #30 EA 0 Refills Prov: Gali Espazra 12/13/17 Albuterol Sulfate* (ALBUTEROL SULFATE MDI*) 8.5 Gm Hfa.aer.ad 2 PUFF INH Q3H, #1 INH 0 Refills Prov: Gail Esparza 12/13/17 Referrals: NOT CHOSEN [facility]/,REFERRING (PCP) Patient Instructions: Asthma, Adult Additional Instructions: Take medications as directed. Follow up with a Primary Care Provider in 3-5 days, even if your symptoms have resolved. --Please review list of primary care clinics, if you do not already have a primary care provider Return sooner to ED if new symptoms occur, or current symptoms become worse. - Please note that this Emergency Department Report was dictated using Jetaport[employer] processor technology software, occasionally this can lead to erroneous entry secondary to interpretation by the dictation equipment. Gail Esparza Dec 13, 2017 15:21
[2017-12-13] MEDS ORDERED: ALBUTEROL SULF8.5 GM INH (15:23)
[2017-12-13] MEDS ORDERED: REUSABLE NEBUL1 EACH MC (15:23)
[2017-12-13] MEDS ORDERED: ALBUTEROL2.5 MG/3 M INH (15:23)
[2017-12-13 15:37] VITALS: BP 120/78
== END 2017-12-13 15:40 | disposition home or self-care (01) ==
LOC: EMR 15:15
DX: J45.901 Unspecified asthma with (acute) exacerbation (principal)
CPT/HCPCS: 94640; 94664; 99284

== ENCOUNTER 2018-03-23 12:13 | Emergency (ER) | payer MEDICAID ==
[~2018-03-23] VITALS: Ht 172.7 cm; Wt 84.8 kg
[~2018-03-23 12:13] MED LIST changes: +ALBUTEROL2.5 MG/3 M INH; +REUSABLE NEBUL1 EACH MC
[2018-03-23] MEDS ORDERED: Dicyclomine HCl 10mg/5ml oral soln ORAL ONE (12:45)
[2018-03-23] MEDS ORDERED: Mylanta II UD 30ml ORAL ONE (12:45)
[2018-03-23] MEDS ORDERED: Lidocaine 2% Visc 15ml soln ORAL ONE (12:45)
--- NOTE | 2018-03-23 12:45 | NUR ---
ED Nurse Note: Pt came in for n, diarrhea, and abdominal pain since 03/20/18. 12/29 abdominal pain. Non radiating. A + O x4. Ambulatory.
[2018-03-23 12:46] VITALS: BP 121/78
--- NOTE | 2018-03-23 12:58 | Emergency Room Report ---
History of Present Illness General Chief Complaint: Abdominal Pain Source: Patient Present Illness HPI 22-year-old female patient presents the ER complaining of diarrhea, abdominal pain, and nausea for the past 4 days. Reports diarrhea was watery. Reports nausea when attempting to eat food, states has been able to tolerate a little bit of fluids p.o. but has not wanted to eat anything during this time due to nausea symptoms. Reports mild right lower quadrant pain, states is been present for "a while" due to history of ovarian cyst. Denies vomiting. Denies chest pain, shortness of breath. Denies recent travel. Denies contacts with similar symptoms. Denies dysuria, hematuria, vaginal discharge. Denies constipation. Reports able to pass flatus. Allergies: Coded Allergies: PENICILLINS (Verified Allergy, Severe, Hives, 12/13/17) Patient History Past Medical History: see triage record Now: No Reviewed Nursing Documentation: PMH: Agreed; PSxH: Agreed Nursing Documentation-PMH Past Medical History: No History, Except For Hx Asthma: Yes Hx Gastrointestinal Problems: Yes - Cholecystectomy Hx Neurological Problems: No - Right Ovarian cyst removed on 04/09/17 Review of Systems All Other Systems: negative except mentioned in HPI Physical Exam Vital Signs Date Time Temp Pulse Resp B/P (MAP) Pulse Ox O2 Delivery O2 Flow Rate FiO2 03/23/18 12:37 98.2 69 20 121/78 96 Room Air 03/23/18 12:46 100 Sp02 EP Interpretation: reviewed, normal General Appearance: well appearing, no apparent distress, alert, GCS 15, non- toxic Head: normocephalic, atraumatic Eyes: bilateral eye normal inspection, bilateral eye PERRL ENT: hearing grossly normal, normal pharynx, no angioedema, normal voice, uvula midline, moist mucus membranes Neck: full range of motion Respiratory: lungs clear, normal breath sounds, no rhonchi, no respiratory distress, no accessory muscle use, no wheezing, speaking full sentences Cardiovascular #1: regular rate, rhythm, no edema Gastrointestinal: normal bowel sounds, soft, no mass, non-distended, no guarding, no rebound, tenderness - RLQ, other - negative Fink, negative obturator Genitourinary: no CVA tenderness, deferred Musculoskeletal: back normal, digits/nails normal, gait/station normal, normal range of motion, non-tender Neurologic: alert, oriented x3, responsive, motor strength/tone normal, sensory intact Psychiatric: mood/affect normal Skin: no rash Medical Decision Making PA Attestation Dr. Mcclain is my supervising Physician whom patient management has been discussed with. Diagnostic Impression: Primary Impression: Abdominal pain, vomiting, and diarrhea Additional Impression: Cervix abnormality ER Course Pt. presents to the ED c/o abdominal pain and vomiting. Ddx considered but are not limited to UTI, cholelithiasis, cholecystitis, pancreatitis, gastritis, ovarian cyst, appendicitis, diverticulitis, constipation, influenza. Begin abdominal pain workup. Provided patient with pain medication. Vital signs: are WNL, pt. is afebrile ORDERS: CBC, CMP, Lipase, UA, CT abdomen pelvis, Zofran and medication. ER COURSE: Provided with IV fluids. CBC and CMP unremarkable, no elevation in WBCs or LFTs Lipase WNL UA shows no signs of infection Urine negative Discuss results with patient CT abdomen and pelvis shows no acute disease, cervix prominent. Pelvic deferred. Advised to followup with OBGYN. Discuss results with the patient. Provided patient with copy of results. Instructed patient to followup with PCP and discuss results of report with patient, discuss need for further treatment and referral. Denies vaginal discomfort, denies dysuria, hematuria, vaginal discharge, UA unremarkable, pelvic differed. Patient called and scheduled appointment for alteration specialist for tomorrow while in the ER, will discuss lab results at that time. Patient requesting coverage for gonorrhea chlamydia, provided with Azithromycin and Rocephin while in the ER. Advised to followup with STI clinic fo further testing and treatment. Patient able to tolerate PO fluids and foods. States she is feeling better and ready for discharge to home to so "I can eat". Patient reports relief of pain symptoms with medication. No fever, no blood in stool, no recent travel or hospitalizations, does not require abx treatment at this time. No signs of dehydration, moist mucus membranes, cap refill <2seconds, normal skin turgor. Patient reports eating and drinking normally. Patient does not require abx at this time; afebrile, no recent travel, no blood in stool. Return to ER if symptoms persist. Drink fluids as tolerated to prevent dehydration. ER precautions given. DISCHARGE: At this time pt. is stable for d/c to home. Patient resting comfortably, in no acute distress, nontoxic appearing, talking without difficulty. Rx provided to patient. Patient to take medications as instructed Will provide with patient care instructions and any necessary prescriptions. Care plan and follow-up instructions provided. Patient instructed to follow-up with primary care provider in 3 - 5 days. Patient questions asked and answered. Patient reports understanding and agreement to treatment plan. ER precautions given. Patient instructed to return to ER immediately for any new or worsening of symptoms including but not limited to increasing SOB, persistent fever, worsening of pain symptoms, intractable vomiting, blood in stool, urine, and/or emesis. - Please note that this Emergency Department Report was dictated using [employer]uni[employer] plant structural engineer technology software, occasionally this can lead to erroneous entry secondary to interpretation by the dictation equipment. Labs Test 03/23/18 13:00 White Blood Count 8.9 K/UL (4.8-10.8) Red Blood Count 4.33 M/UL (4.20-5.40) Hemoglobin 13.4 G/DL (12.0-16.0) Hematocrit 40.8 % (37.0-47.0) Mean Corpuscular Volume 94 FL (80-99) Mean Corpuscular Hemoglobin 31.0 PG (27.0-31.0) Mean Corpuscular Hemoglobin Concent 32.9 G/DL (32.0-36.0) Red Cell Distribution Width 11.3 % (11.6-14.8) Platelet Count 247 K/UL (150-450) Mean Platelet Volume 9.2 FL (6.5-10.1) Neutrophils (%) (Auto) 55.2 % (45.0-75.0) Lymphocytes (%) (Auto) 32.1 % (20.0-45.0) Monocytes (%) (Auto) 7.1 % (1.0-10.0) Eosinophils (%) (Auto) 4.0 % (0.0-3.0) Basophils (%) (Auto) 1.6 % (0.0-2.0) Urine Color Yellow Urine Appearance Slightly cloudy Urine pH 5 (4.5-8.0) Urine Specific Rhodes 1.025 (1.005-1.035) Urine Protein 2+ (NEGATIVE) Urine Glucose (UA) Negative (NEGATIVE) Urine Ketones 1+ (NEGATIVE) Urine Blood 1+ (NEGATIVE) Urine Nitrite Negative (NEGATIVE) Urine Bilirubin Negative (NEGATIVE) Urine Urobilinogen Normal MG/DL (0.0-1.0) Urine Leukocyte Esterase 1+ (NEGATIVE) Urine RBC 2-4 /HPF (0 - 2) Urine WBC 2-4 /HPF (0 - 2) Urine Squamous Epithelial Cells Many /LPF (NONE/OCC) Urine Bacteria Few /HPF (NONE) Urine HCG, Qualitative Negative (NEGATIVE) Sodium Level 138 MMOL/L (136-145) Potassium Level 3.7 MMOL/L (3.5-5.1) Chloride Level 104 MMOL/L (98-107) Carbon Dioxide Level 25 MMOL/L (21-32) Anion Gap 9 mmol/L (5-15) Blood Urea Nitrogen 10 mg/dL (7-18) Creatinine 0.8 MG/DL (0.55-1.30) Estimat Glomerular Filtration Rate > 60 mL/min (>60) Glucose Level 87 MG/DL (74-106) Calcium Level 8.5 MG/DL (8.5-10.1) Total Bilirubin 0.4 MG/DL (0.2-1.0) Aspartate Amino Transf (AST/SGOT) 30 U/L (15-37) Alanine Aminotransferase (ALT/SGPT) 49 U/L (12-78) Alkaline Phosphatase 94 U/L (46-116) Total Protein 7.4 G/DL (6.4-8.2) Albumin 3.6 G/DL (3.4-5.0) Globulin 3.8 g/dL Albumin/Globulin Ratio 0.9 (1.0-2.7) Lipase 225 U/L (73-393) CT/MRI/US Diagnostic Results CT/MRI/US Diagnostic Results : Imaging Test Ordered: CT abdomen pelvis Impression Prominence of the cervix. Underlying cervicitis or mass not excluded. Clinical evaluation and pelvic examination recommended. 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 Status post cholecystectomy Last Vital Signs Date Time Temp Pulse Resp B/P (MAP) Pulse Ox O2 Delivery O2 Flow Rate FiO2 03/23/18 12:46 98.2 70 20 121/78 100 Room Air 03/23/18 12:46 100 Status: improved Disposition: HOME, SELF-CARE Condition: Stable Scripts Ondansetron* (ZOFRAN*) 4 Mg Tablet 4 MG ORAL Q6H PRN for Nausea & Vomiting, #8 TAB Prov: [place] 03/23/18 Acetaminophen* (TYLENOL EXTRA STRENGTH*) 500 Mg Tablet 500 MG ORAL Q8H PRN for Prn Headache/Temp > 101, #30 TAB 0 Refills Prov: [place] 03/23/18 Referrals: NOT CHOSEN IPA/MD,REFERRING (PCP) Patient Instructions: Abdominal Pain, Adult, Cervical Biopsy, Diarrhea, Adult, [id number], Nausea and Vomiting, Adult, [id number] Additional Instructions: Followup with primary care provider in 3 -5 days. Followup with alteration specialist. Avoid spicy foods, avoid dairy foods. BRAT diet: bananas, rice, apple sauce, toast. Consider Immodium for diarrhea and Tylenol for pain symptoms. Take medications as directed. Patient questions asked and answered. ER precautions given, patient instructed to return to ER immediately for any new or worsening of symptoms. [place] Mar 23, 2018 12:58
[2018-03-23] MEDS ORDERED: Isovue-300 100ml vial INJ PRN ×2 (13:00→13:30)
[2018-03-23 13:15] LABS: BASOPHILS % (AUTO) 1.6 % (0.0-2.0); HEMATOCRIT 40.8 % (37.0-47.0); HEMOGLOBIN 13.4 G/DL (12.0-16.0); LYMPHOCYTES % (AUTO) 32.1 % (20.0-45.0); MEAN CORPUSCULAR VOLUME 94 FL (80-99); MONOCYTES % (AUTO) 7.1 % (1.0-10.0); NEUTROPHILS % (AUTO) 55.2 % (45.0-75.0); PLATELET COUNT 247 K/UL (150-450); RED BLOOD COUNT 4.33 M/UL (4.20-5.40); RED CELL DISTRIBUTION WIDTH 11.3 % (11.6-14.8); WHITE BLOOD COUNT 8.9 K/UL (4.8-10.8)
[2018-03-23 13:25] LABS: ANION GAP 9 mmol/L (5-15); BLOOD UREA NITROGEN 10 mg/dL (7-18); CALCIUM 8.5 MG/DL (8.5-10.1); CARBON DIOXIDE 25 MMOL/L (21-32); CHLORIDE 104 MMOL/L (98-107); CREATININE 0.8 MG/DL (0.55-1.30); POTASSIUM 3.7 MMOL/L (3.5-5.1); SODIUM 138 MMOL/L (136-145)
[2018-03-23 13:26] LABS: ALANINE AMINOTRANSFERASE 49 U/L (12-78); ALBUMIN 3.6 G/DL (3.4-5.0); ALBUMIN/GLOBULIN RATIO 0.9 (1.0-2.7); ALKALINE PHOSPHATASE 94 U/L (46-116); ASPARTATE AMINO TRANSFERASE 30 U/L (15-37); BILIRUBIN,TOTAL 0.4 MG/DL (0.2-1.0)
[2018-03-23 13:40] LABS: APPEARANCE,URINE SLIGHTLY CLOUDY; BILIRUBIN, URINE NEGATIVE (NEGATIVE); GLUCOSE, URINE (UA) NEGATIVE (NEGATIVE); KETONES,URINE 1+ (NEGATIVE); LEUKOCYTE ESTERASE ,URINE 1+ (NEGATIVE); NITRITE,URINE NEGATIVE (NEGATIVE); PH,URINE 5 (4.5-8.0); PROTEIN,URINE 2+ (NEGATIVE); UROBILINOGEN,URINE NORMAL MG/DL (0.0-1.0)
[2018-03-23 13:41] LABS: COLOR,URINE YELLOW
--- NOTE | 2018-03-23 14:26 | Diagnostic Imaging Report ---
Indication: Abdominal pain Technique: Continuous helical transaxial imaging of the abdomen and pelvis was obtained from the lung bases to the pubic symphysis during intravenous contrast administration. Coronal 2-D reformats were also obtained. Study obtained in a Siemens sensation [address] Automatic Exposure Control was utilized. Total Dose length Product (DLP): 824.[address] Dose Index Volume (CTDIvol): 15.91 mGy Comparison: None Findings: Cholecystectomy clips noted. The liver and spleen appear unremarkable. There is a small hiatal hernia versus epiphrenic diverticulum at the diaphragmatic hiatus. There is no hydronephrosis or free fluid. The appendix is not definitely seen. Note secondary signs of acute appendicitis appreciated. Uterus noted. The area of the cervix appears prominent. Correlate clinically for cervicitis although this could be a normal finding. There is no inflammation or free fluid within the pelvis. The bladder is nondistended. IMPRESSION: Prominence of the cervix. Underlying cervicitis or mass not excluded. Clinical evaluation and pelvic examination recommended. 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 Status post cholecystectomy The CT scanner at [facility] is accredited by the [place] [employer] and the scans are performed using dose optimization techniques as appropriate to a performed exam including Automatic Exposure control.
[2018-03-23] MEDS ORDERED: Lidocaine 1% MPF 10mg/ml 5ml INJ ONE (15:45)
[2018-03-23] MEDS ORDERED: Azithromycin 250mg tab ORAL ONE (15:45)
[2018-03-23] MEDS ORDERED: ZOFRAN 4 MG4 MG/2 ML IV (16:45)
[2018-03-23] MEDS ORDERED: TYLENOL EXTRA500 MG ORAL (16:45)
[2018-03-23] MEDS ORDERED: ZOFRAN4 M3 ORAL (17:12)
[2018-03-23 17:41] VITALS: BP 125/74
--- NOTE | 2018-03-23 17:42 | NUR ---
ED Nurse Note: Discharge instructions given to pt. Answered all questions. Verbalized understanding. A + O x4. Ambulatory. ID band and Iv site removed. Left with all belongings. Left ER w/ steady gait.
== END 2018-03-23 17:10 | disposition home or self-care (01) ==
LOC: EMR 12:51 → EEVIPCON 12:51 → EMR 17:10
DX: R10.31 Right lower quadrant pain (principal); R11.2 Nausea with vomiting, unspecified; R19.7 Diarrhea, unspecified; N88.8 Other specified noninflammatory disorders of cervix uteri; Z90.49 Acquired absence of other specified parts of digestive tract; Z88.0 Allergy status to penicillin
CPT/HCPCS: 36415; 74177; 80053; 81003; 81025; 83690; 85025; 96361; 96372; 96374; 99284; J0696; J2405; Q0144; Q9967

== ENCOUNTER 2018-07-22 14:30 | Emergency (ER) | payer MEDICAID ==
[~2018-07-22] VITALS: Ht 172.7 cm; Wt 83.9 kg
[~2018-07-22 14:30] MED LIST changes: +TYLENOL EXTRA500 MG ORAL; +ZOFRAN 4 MG4 MG/2 ML IV; +ZOFRAN4 M3 ORAL
--- NOTE | 2018-07-22 15:14 | Emergency Room Report ---
History of Present Illness General Chief Complaint: Lower Extremity Injury Source: Patient Present Illness HPI Patient is a 23-year-old female presented after increased right-sided ankle pain. Patient reports having recent injury to her right ankle which she reports having a recent injury. Patient had been able to ambulate with continued pain. Patient had not been taking any medications. She had prior history of asthma. Patient previously been on steroids.She reports having some recent increased in her eczema. Review of systems is otherwise negative. Allergies: Coded Allergies: PENICILLINS (Verified Allergy, Severe, Hives, 12/13/17) Patient History Past Medical History: see triage record Last Menstrual Period: 06/21/18 Now: No Reviewed Nursing Documentation: PMH: Agreed; PSxH: Agreed Nursing Documentation-PMH Past Medical History: No History, Except For Hx Asthma: Yes Hx Gastrointestinal Problems: Yes - Cholecystectomy Hx Neurological Problems: No - Right Ovarian cyst removed on 04/09/17 Review of Systems All Other Systems: negative except mentioned in HPI Physical Exam Vital Signs Date Time Temp Pulse Resp B/P (MAP) Pulse Ox O2 Delivery O2 Flow Rate FiO2 07/22/18 14:35 98.8 75 20 98 Room Air General Appearance: well appearing, no apparent distress, alert, GCS 15 Head: normocephalic, atraumatic ENT: hearing grossly normal, normal voice Neck: full range of motion, supple Respiratory: no respiratory distress, speaking full sentences Musculoskeletal: normal inspection, no calf tenderness, swelling - right ankle , foot tenderness base of 5th metatarsal Neurologic: normal inspection, alert, oriented x3, responsive, normal gait Psychiatric: mood/affect normal Skin: other - generalized eczematous rash Medical Decision Making Diagnostic Impression: Primary Impression: Ankle sprain ER Course Patient presented for leg and ankle pain. Differential diagnosis included was not limited to vascular insufficiency, fracture, osteomyelitis, sprain, deep venous thrombosis. X-ray imaging of the ankle and foot and foot was obtained. X-ray imaging of the right ankle 3 views interpreted by radiology showed normal bony alignment without a fracture. X-ray of the foot read by radiology showed normal bony alignment without any fracture. Patient was discharged home. Patient was advised elevation and and was given prescription for ibuprofen. She is to follow-up as needed. Labs Test 07/22/18 15:02 Urine HCG, Qualitative Negative (NEGATIVE) Last Vital Signs Date Time Temp Pulse Resp B/P (MAP) Pulse Ox O2 Delivery O2 Flow Rate FiO2 07/22/18 14:35 98.8 75 20 98 Room Air Status: improved Disposition: HOME, SELF-CARE Condition: Stable Scripts Ibuprofen* (MOTRIN*) 600 Mg Tablet 600 MG ORAL Q6H PRN for For Pain, #16 TAB Prov: Gonzales Serrano MD 07/22/18 Gonzales Serrano MD July 22, 2018 15:13
--- NOTE | 2018-07-22 15:49 | Diagnostic Imaging Report ---
Indication: Foot pain, status post fall Technique: 3 views right foot Comparison: none Findings: No acute fractures. No dislocations. The joint spaces are preserved. Impression: Negative
--- NOTE | 2018-07-22 15:50 | Diagnostic Imaging Report ---
Indication: Ankle pain, status post fall Technique: 3 views of the right ankle Comparison: none Findings: No acute fractures. No dislocations. The joint spaces are preserved Impression: Negative
[2018-07-22] MEDS ORDERED: IBUPROFEN600 MG ORAL (15:52)
[2018-07-22 16:05] VITALS: BP 125/71
== END 2018-07-22 16:02 | disposition home or self-care (01) ==
LOC: EMR 15:17
DX: S93.401A Sprain of unspecified ligament of right ankle, initial encounter (principal); X58.XXXA Exposure to other specified factors, initial encounter; Y92.9 Unspecified place or not applicable; Z88.0 Allergy status to penicillin; Z90.49 Acquired absence of other specified parts of digestive tract
CPT/HCPCS: 81025; 99284

== ENCOUNTER 2018-08-17 13:13 | Emergency (ER) | payer MEDICAID ==
[~2018-08-17] VITALS: Ht 167.6 cm; Wt 83.5 kg
--- NOTE | 2018-08-17 13:25 | NUR ---
ED Nurse Note: PT CAME IN DUE TO SUDDEN ONSET OF SOB AND CHEST TIGHTNESS STARTED A FEW MINS PRIOR ED ARRIVAL. PT USES INHALER THIS MORNING. HX OF ASTHMA. PT IS AAO X4, AMBULATORY WITH SOB AT REST. LUNGS ARE CLEAR WHEN AUSCULTATED. VSS. EKG DONE AND SEEN BY LEANNA.
[2018-08-17] MEDS ORDERED: Albuterol/Ipratropium 3ml neb HHN ONE ×2 (13:30→14:30)
--- NOTE | 2018-08-17 13:37 | Emergency Room Report ---
History of Present Illness General Chief Complaint: Dyspnea/Respdistress Source: Patient Present Illness HPI Patient is a 23-year-old female presented after acute onset of increased difficulty with breathing. Patient a prior history of asthma. She had previously been taking her inhaler. Patient had reportedly had increased difficulty breathing over the past few days. This had worsened today. Patient had onset of symptoms during light activity. She denies any prior cardiac history. Patient had previously been prescribed steroids after similar episodes. Allergies: Coded Allergies: PENICILLINS (Verified Allergy, Severe, Hives, 12/13/17) Patient History Past Medical History: see triage record, asthma Last Menstrual Period: last month Now: No Reviewed Nursing Documentation: PMH: Agreed; PSxH: Agreed Nursing Documentation-PMH Past Medical History: No History, Except For Hx Asthma: Yes Hx Gastrointestinal Problems: Yes - Cholecystectomy Hx Neurological Problems: No - Right Ovarian cyst removed on 04/09/17 Review of Systems All Other Systems: negative except mentioned in HPI Physical Exam Vital Signs Date Time Temp Pulse Resp B/P (MAP) Pulse Ox O2 Delivery O2 Flow Rate FiO2 08/17/18 13:15 97.5 89 32 124/70 (88) 100 Room Air Sp02 EP Interpretation: reviewed, normal General Appearance: normal inspection, alert, GCS 15, mild distress Head: atraumatic ENT: normal ENT inspection, hearing grossly normal, normal voice Neck: normal inspection, full range of motion, supple, no bony tend Respiratory: normal inspection, no rhonchi, no respiratory distress, no retraction, wheezing Cardiovascular #1: regular rate, rhythm, no edema Gastrointestinal: normal inspection, normal bowel sounds, non tender, soft, no guarding, no hernia Genitourinary: no CVA tenderness Musculoskeletal: normal inspection, back normal, normal range of motion Neurologic: normal inspection, alert, responsive, speech normal Psychiatric: normal inspection, judgement/insight normal, mood/affect normal Skin: normal inspection, normal color, no rash Medical Decision Making Diagnostic Impression: Primary Impression: Asthma ER Course Patient presented for shortness of breath. Differential diagnosis include was not limited to asthma exacerbation, anxiety, bronchitis among others patient has a benign exam and does not appear to require any further imaging or laboratory testing at this time. Patient is noted to have prior history of asthma and was given steroids. She is also given breathing treatments. Patient was noted to have improvement in her breathing. Patient was noted to have good air movement at the time of discharge. Patient was advised to return if she felt worse Last Vital Signs Date Time Temp Pulse Resp B/P (MAP) Pulse Ox O2 Delivery O2 Flow Rate FiO2 08/17/18 13:15 97.5 89 32 124/70 (88) 100 Room Air Status: improved Disposition: HOME, SELF-CARE Condition: Stable Gonzales Serrano MD August 17, 2018 13:37
[2018-08-17] MEDS ORDERED: Dexamethasone 4mg/ml vial IM ONE (13:45)
[2018-08-17 13:46] VITALS: BP 126/78
--- NOTE | 2018-08-17 14:21 | NUR ---
ED Nurse Note: CALLED RT FOR SECOND BREATHNG TREATMENT.
[2018-08-17 14:35] VITALS: BP 131/71
--- NOTE | 2018-08-17 14:35 | NUR ---
ER DISCHARGE NOTE: Patient is cleared to be discharged per ERMD, pt is aox4, on room air, with stable vital signs. pt was given dc and prescription instructions, pt was able to verbalize understanding, pt id band removed. pt is able to ambulate with steady gait. pt took all belongings.
== END 2018-08-17 14:35 | disposition home or self-care (01) ==
LOC: EMR 14:03
DX: J45.909 Unspecified asthma, uncomplicated (principal); Z88.0 Allergy status to penicillin; Z90.49 Acquired absence of other specified parts of digestive tract
CPT/HCPCS: 94640; 94664; 96372; 99284; J1100; J7512; J7620

== ENCOUNTER 2018-12-27 12:28 | Emergency (ER) | payer MEDICAID ==
[~2018-12-27] VITALS: Ht 172.7 cm; Wt 86.2 kg
--- NOTE | 2018-12-27 12:30 | NUR ---
ED Nurse Note: Patient in restroom.
[2018-12-27] MEDS ORDERED: Albuterol ud Inhalation HHN ONE (13:00)
[2018-12-27] MEDS ORDERED: Ipratropium 0.02% Inh Soln 2.5ml UD HHN ONE (13:00)
[2018-12-27] MEDS ORDERED: Dexamethasone 4mg/ml vial IM ONE (13:00)
[2018-12-27] MEDS ORDERED: ALBUTEROL SULF8.5 GM INH (13:01)
--- NOTE | 2018-12-27 13:01 | Emergency Room Report ---
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 Allergies: Coded Allergies: PENICILLINS (Verified Allergy, Severe, Hives, 12/13/17) Patient History Past Medical History: see triage record Last Menstrual Period: 12/01/2018 Reviewed Nursing Documentation: PMH: Agreed; PSxH: Agreed Nursing Documentation-PMH Past Medical History: No History, Except For Hx Asthma: Yes Hx Gastrointestinal Problems: Yes - Cholecystectomy Hx Neurological Problems: No - Right Ovarian cyst removed on 04/09/17 Review of Systems All Other Systems: negative except mentioned in HPI Physical Exam Vital Signs Date Time Temp Pulse Resp B/P (MAP) Pulse Ox O2 Delivery O2 Flow Rate FiO2 12/27/18 12:39 98.1 92 15 129/88 (102) 95 Room Air Sp02 EP Interpretation: reviewed, normal General Appearance: well appearing, no apparent distress, alert Head: normocephalic, atraumatic Eyes: bilateral eye PERRL, bilateral eye EOMI ENT: uvula midline, moist mucus membranes Neck: supple, thyroid normal, supple/symm/no masses Respiratory: no retraction, no accessory muscle use, decreased breath sounds, wheezing - Mild Cardiovascular #1: normal peripheral pulses, regular rate, rhythm, no edema, no gallop, no murmur Gastrointestinal: non tender, soft, no guarding, no rebound Musculoskeletal: normal inspection Neurologic: alert, oriented x3 Psychiatric: mood/affect normal Skin: no rash, warm/dry Medical Decision Making Diagnostic Impression: Primary Impression: Asthma attack Qualified Codes: J45.41 - Moderate persistent asthma with (acute) exacerbation ER Course 23-year-old female presents with acute asthma exacerbation, low suspicion for pneumonia, low suspicion for pneumothorax, breath sounds are equal bilaterally patient has reduced breath sounds bilaterally due to her asthma attack Will provide patient with steroids, breathing treatments Disposition home with return precautions, 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 Patient Instructions: Asthma, Adult Additional Instructions: The patient was provided with discharge instructions, notified to follow-up with a primary care doctor and or specialist in the next 24-48 hours, and to return to the ED if they have worsening of their symptoms. Please note that this report is being documented using [employer] technology. This can lead to erroneous entry secondary to incorrect interpretation by the dictating instrument. Rah Rivero MD Dec 27, 2018 13:01
[2018-12-27] MEDS: Ipratropium 0.02% Inh Soln 2.5ml UD HHN SCH ×2 (13:06→13:10)
[2018-12-27] MEDS: Albuterol ud Inhalation HHN SCH ×2 (13:06→13:11)
--- NOTE | 2018-12-27 13:20 | NUR ---
ED Nurse Note: Patient walked in to ER with difficulty breathing. Per patient shes having asthmatic attack. Patient stated that she was diagnosed of asthma when she was 3 years old. Per patient her asthma usually triggers when the weather's changing. Able to speak coherently at this time.
[2018-12-27 13:30] VITALS: BP 126/72
[2018-12-27] MEDS ORDERED: SINGULAIR10 MG ORAL (14:02)
[2018-12-27 14:07] VITALS: BP 126/78
== END 2018-12-27 14:04 | disposition home or self-care (01) ==
LOC: EMR 12:58
DX: J45.41 Moderate persistent asthma with (acute) exacerbation (principal); Z90.49 Acquired absence of other specified parts of digestive tract; Z88.0 Allergy status to penicillin; Z79.51 Long term (current) use of inhaled steroids
CPT/HCPCS: 94640; 94664; 96372; J1100; Z7502; 99284

== ENCOUNTER 2019-02-04 13:05 | Emergency (ER) | payer MEDICAID, OTHER ==
[~2019-02-04] VITALS: Ht 172.7 cm; Wt 87.5 kg
[~2019-02-04 13:05] MED LIST changes: +SINGULAIR10 MG ORAL
--- NOTE | 2019-02-04 13:27 | NUR ---
ED Nurse Note: Pt came in from work due to lower back injury and L wrist injury. 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 Pain 8/10 at this time. AOOx4, vital signs stable. Will cont to monitor.
[2019-02-04] MEDS ORDERED: Acetaminophen 500mg (ES) tab ORAL ONE (13:45)
[2019-02-04] MEDS ORDERED: Methocarbamol 500mg tab ORAL ONE (13:45)
[2019-02-04 13:48] VITALS: BP 132/82
--- NOTE | 2019-02-04 13:50 | Emergency Room Report ---
History of Present Illness General Chief Complaint: Back Injury Source: Patient, Medical Record Present Illness HPI 23-year-old female presents the emergency department complaining of 10 out of 10 severity generalized tenderness to the left wrist as well as upper back primarily in the middle section x1 day. 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 She denies appreciable trauma or fall she denies palpable or auditory of pop and she reports she does have range of motion with pain denies paresthesias, difficulty breathing, shortness of breath. Patient denies open wounds or bleeding she denies bruises. Pain exacerbated with palpation or movement of affected areas. Denies saddle anesthesia, gross motor weakness or loss of sensation. No additional aggravating or relieving factors at this time. Allergies: Coded Allergies: PENICILLINS (Verified Allergy, Severe, Hives, 12/13/17) Patient History Past Medical History: see triage record Past Surgical History: none Pertinent Family History: none Last Menstrual Period: 02/03/2019 Now: No : 0 Para: 0 Reviewed Nursing Documentation: PMH: Agreed; PSxH: Agreed Nursing Documentation-PMH Hx Asthma: Yes Hx Gastrointestinal Problems: Yes - Cholecystectomy Hx Neurological Problems: No - Right Ovarian cyst removed on 04/09/17 Review of Systems All Other Systems: negative except mentioned in HPI Physical Exam Vital Signs Date Time Temp Pulse Resp B/P (MAP) Pulse Ox O2 Delivery O2 Flow Rate FiO2 02/04/19 13:12 98.8 75 18 132/82 (99) 96 Room Air Sp02 EP Interpretation: reviewed, normal General Appearance: no apparent distress, alert, GCS 15, non-toxic Head: normocephalic, atraumatic Eyes: bilateral eye normal inspection, bilateral eye PERRL ENT: hearing grossly normal, normal voice Neck: full range of motion Respiratory: chest non-tender, lungs clear, normal breath sounds, speaking full sentences Cardiovascular #1: regular rate, rhythm, normal capillary refill Cardiovascular #2: 2+ radial (R), 2+ radial (L) Musculoskeletal: back normal, gait/station normal, normal range of motion - with pain., tender - TTP both midline and paraspinal of the mid Thoracic area. no Specific spinous process ttp, no palpable step off. TTP to the LEFT WRIST medially and dorsally, negative snuff box tenderness, no swelling or bruising. pain with ROM testing. Neurologic: alert, oriented x3, responsive, motor strength/tone normal, sensory intact, speech normal, grossly normal Psychiatric: judgement/insight normal Lymphatic: no adenopathy Medical Decision Making MRATA Attestation Dr. Sanz is my supervising Physician whom patient management has been discussed with. Diagnostic Impression: Primary Impression: Left wrist sprain Qualified Codes: S63.502A - Unspecified sprain of left wrist, initial encounter Additional Impressions: Muscle strain of upper back Personal history of scoliosis ER Course 23-year-old female presents the emergency department complaining of 10 out of 10 severity generalized tenderness to the left wrist as well as upper back primarily in the middle section x1 day. 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 Patient denies open wounds or bleeding she denies bruises. Pain exacerbated with palpation or movement of affected areas. Denies saddle anesthesia, gross motor weakness or loss of sensation. No additional aggravating or relieving factors at this time. Ddx considered but are not limited to Fracture, dislocation, contusion, Sprain/ Strain/Spasm, muscle spasm, spinal chord or nerve injury just to name a few. Vital signs: are WNL, pt. is afebrile H&PE are most consistent with musculoskeletal injury will perform imaging to r/ o fractures/dislocations. ORDERS: - X-ray T-spine 2 views and Left wrist 3 views - negative for fx, Dislocation , or significant soft tissue injury, per preliminary read in ED, and signed by MARTA Esparza, my supervising physician has reviewed, and agrees with my interpretation. ED INTERVENTIONS: - 1g Robaxin -1g Tylenol -Lidoderm patch Left wrist Splint applied by cleaning technician. Pt. remains neurovascularly intact. DISCHARGE: At this time pt. is stable for d/c to home. Will provide printed patient care instructions, and any necessary prescriptions. Care plan and follow up instructions have been discussed with the patient prior to discharge. Other X-Ray Diagnostic Results Other X-Ray Diagnostic Results #1: X-Ray ordered: T-spine # of Views/Limited Vs Complete: 2 View Indication: Pain EP Interpretation: Yes PA Xray: Interpretation reviewed, by supervising MD, and agrees with findings. Interpretation: no dislocation, no fractures Impression: No acute disease Electronically Signed by: Gail Esparza PA-C Other X-Ray Diagnostic Results #2: X-Ray ordered: Left wrist # of Views/Limited Vs Complete: 3 View Indication: Pain EP Interpretation: Yes PA Xray: Interpretation reviewed, by supervising MD, and agrees with findings. Interpretation: no dislocation, no soft tissue swelling, no fractures Impression: No acute disease Electronically Signed by: Gail Esparza PA-C Last Vital Signs Date Time Temp Pulse Resp B/P (MAP) Pulse Ox O2 Delivery O2 Flow Rate FiO2 02/04/19 13:12 98.8 75 18 132/82 (99) 96 Room Air Disposition: HOME, SELF-CARE Condition: Stable Scripts Methocarbamol* (ROBAXIN-750*) 750 Mg Tablet 750 MG PO QID, #28 TAB 0 Refills Prov: Gail Esparza 02/04/19 Lidocaine Patch* (Lidoderm Patch*) 1 Each Adh..patch 1 PATCH TOPIC DAILY, #30 PATCH 0 Refills Patch(es) may remain in place for up to 12 hours in any 24-hour period. Prov: Gail Esparza 02/04/19 Ibuprofen* (MOTRIN*) 600 Mg Tablet 600 MG ORAL THREE TIMES A DAY, #30 TAB 0 Refills Prov: Gail Esparza 02/04/19 Patient Instructions: Back Pain, Adult, Wrist Sprain Additional Instructions: Take medications as directed. Follow up with a Primary Care Provider in 3-5 days, even if your symptoms have resolved. --Please review list of primary care clinics, if you do not already have a primary care provider Return sooner to ED if new symptoms occur, or current symptoms become worse. Do not drink alcohol, drive, or operate heavy machinery while taking Robaxin as this may cause drowsiness. - Please note that this Emergency Department Report was dictated using [employer] specialist technology software, occasionally this can lead to erroneous entry secondary to interpretation by the dictation equipment. Gail Esparza Feb 04, 2019 13:50
--- NOTE | 2019-02-04 14:57 | Diagnostic Imaging Report ---
EXAM: XR Left Wrist Complete, 3 or More Views CLINICAL HISTORY: PAIN TECHNIQUE: Frontal, lateral and oblique views of the left wrist. COMPARISON: No relevant prior studies available. FINDINGS: Bones joints: Unremarkable. No acute fracture. No dislocation. Soft tissues: Unremarkable. No radiopaque foreign body. IMPRESSION: Normal left wrist x-rays.
--- NOTE | 2019-02-04 15:00 | Diagnostic Imaging Report ---
EXAM: XR Thoracic Spine, 3 Views CLINICAL HISTORY: PAIN TECHNIQUE: Frontal, lateral and swimmer's views of the thoracic spine. COMPARISON: No relevant prior studies available. FINDINGS: Vertebrae: Dextroscoliosis of the mid thoracic spine centered at T8-T9, approximately 18 Rei angle curvature. No acute fracture. Disc spaces: No acute findings. No significant narrowing. Soft tissues: Surgical clips right upper quadrant of the abdomen IMPRESSION: 1. No acute process. 2. Dextroscoliosis of the mid thoracic spine centered at T8-T9.
[2019-02-04] MEDS ORDERED: LIDODERM700 M1 TOPIC (15:12)
[2019-02-04] MEDS ORDERED: ROBAXIN-750750 MG PO (15:12)
[2019-02-04] MEDS ORDERED: IBUPROFEN600 MG ORAL (15:12)
[2019-02-04 15:22] VITALS: BP 127/80
[2019-02-06] MEDS ORDERED: LIDODERM700 M1 TOPIC (16:08)
== END 2019-02-04 15:30 | disposition home or self-care (01) ==
LOC: EMR 13:49
DX: S63.502A Unspecified sprain of left wrist, initial encounter (principal); S29.012A Strain of muscle and tendon of back wall of thorax, initial encounter; M41.9 Scoliosis, unspecified; X58.XXXA Exposure to other specified factors, initial encounter; Y92.9 Unspecified place or not applicable; Y99.0 Civilian activity done for income or pay; Z88.0 Allergy status to penicillin; Z90.49 Acquired absence of other specified parts of digestive tract
CPT/HCPCS: 29125; 72070; 99284